=== PATIENT | female | born 1965 | race Caucasian/White ===

== ENCOUNTER 2017-05-15 00:59 | Inpatient (IN) | payer MEDICARE, OTHER ==
[~2017-05-15] VITALS: Ht 157.5 cm; Wt 65.8 kg
--- NOTE | ~2017-05-15 | CN ---
Consultation Report [facility] [address] [place]. [address] NAME: NICHOLAS RAMIREZ : 67 STATUS : ADM IN PAT#: [id number] AGE: 52 ADM/REG DATE : 05/15/17 MR#: [id number] REPORT SERV DATE: 05/15/17 DICTATED BY: FELIPE AVILA DATE: 05/15/17 REPORT STATUS : Draft TRANSCRIBED BY: MODL DATE: 05/15/17 CONSULTATION DATE OF CONSULTATION: 05/15/2017 This 52-year-old female was seen having been admitted by transfer from [facility] in [place], [place]. There is a history of having sustained trauma to the face, secondary to a fall during a seizure. The patient was seen subsequently at [facility] Emergency Room. It was determined she needed Oral Surgery Care and there was none available in the [facility], therefore, she was transferred to [facility]. PHYSICAL EXAMINATION: GENERAL: Reveals alert and cooperative female. She is alert to time, place, and person. HEENT: Contusions, abrasions of the right midface particularly nasal labial area. Eyes reveal pupils to be equal and reactive to light. The extraocular motion is intact. There were no paresthesias of the infraorbital, mental nerve. Tongue protrudes midline. Teeth are mobile in the maxillary anterior. The dental occlusion is stable there are no palpable fractures over the zygoma maxilla or mandible. Trachea is midline. The patient phonates well. DIAGNOSTIC DATA: Review of her CT scan from [facility] reveals fractures of the dental roots, teeth numbers 8 and 9 (maxillary central incisors). No other fractures are noted. IMPRESSION: Dental root fractures, contusions, and abrasions. TREATMENT RECOMMENDATIONS: Antibiotic, analgesics, liquid diet, and recommend removal of teeth numbers 8 and 9. This can be accomplished as an outpatient. This was discussed with the patient and her and they have agreed to return to the office Wednesday morning for the above treatment. WT/MODL Felipe Avila D.D.S. / [id number] CC: Radha Sandoval M.D.
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
--- NOTE | ~2017-05-15 | CN ---
Consultation Report [facility] [address] [place]. [address] NAME: NICHOLAS RAMIREZ : 67 STATUS : ADM IN [facility]#: [id number] AGE: 52 ADM/REG DATE : 05/15/17 MR#: [id number] REPORT SERV DATE: 05/15/17 DICTATED BY: ROBERTA JEFFERSON DATE: 05/15/17 REPORT STATUS : Draft TRANSCRIBED BY: MODCora DATE: 05/15/17 NEUROLOGICAL CONSULT/EVALUATION. DATE OF CONSULTATION: 05/15/2017 REASON FOR CONSULTATION: Recurrent seizures and history of head and facial trauma. HISTORY OF PRESENT ILLNESS: The history was obtained from the patient and her present at her bedside. The patient is a 52-year-old female with known history of epilepsy since age 15, treated with Dilantin and recently with Keppra, which was discontinued in view of poor control of seizures. The patient was recently started on Vimpat. The patient sustained facial and head trauma when she had a seizure yesterday while standing in line at a local store. As per the patient's , the patient has had difficulty obtaining her anticonvulsant medications that would last the entire month. The patient's stated that the physicians providing the patient with medications would give them the medicines that would last only half a month, and he had to, as per him, stretch the medicines. The patient was taking only one Dilantin in the last few days. She was still taking 200 mg b.i.d. of her Vimpat. A similar episode happened a couple of months ago. The patient had recurrent seizure with her Dilantin levels being low. The patient has had difficulty maintaining her Medicaid, which apparently, as per physician's office, telling the patient's that it was not active. The patient has been followed by her physician in [place], [place] stated that she has an appointment with neurologist Dr. Cortes in May. She was transferred to this facility from [facility] in [place], [place] today. PAST MEDICAL HISTORY: Significant history of epilepsy since age 15. FAMILY HISTORY: Significant history of seizure disorder in the patient's mother and the patient's daughter who is in her 20s. SOCIAL HISTORY: There is no history of smoking or alcohol use. The patient is with a very attentive , who recently had to stop working to take care of her since the patient has been having recurrent seizures. As per the patient and her , the combination of Dilantin and Vimpat has worked really well for her in the past, and the patient was transferred to this facility to have evaluation done at Oral Surgery for possible surgery since she had a contusion and facial fracture of the dental roots teeth #eight and #nine maxillary central incisions. REVIEW OF SYSTEMS: The patient was quite sleepy, therefore could not provide all the information. The patient's was not present in the room continuously, therefore information was limited. The patient has had difficulty maintaining her employment as a result of her seizures. She is unable to drive. As per the patient, she has tried to maintain her Medicaid, however, has had difficulty with having steady Medicaid coverage and therefore fluctuating supply of her medications, which have been essential for good control of her Consultation Report [facility] [address] [place]. [address] NAME: NICHOLAS RAMIREZ : 67 STATUS : ADM IN [facility]#: [id number] AGE: 52 ADM/REG DATE : 05/15/17 MR#: [id number] REPORT SERV DATE: 05/15/17 DICTATED BY: ROBERTA JEFFERSON DATE: 05/15/17 REPORT STATUS : Draft TRANSCRIBED BY: ASHLEY DATE: 05/15/17 seizures. PHYSICAL EXAMINATION: VITAL SIGNS: Blood pressure 100/56, pulse was 60, respirations 16, and temperature 98.9. HEAD AND NECK: Examination showed head to be normocephalic. Evidence of recent facial trauma through the midportion of the upper lip and lower lip with swelling, redness, ecchymoses, and area of the sutures in the upper lip. Eye exam: Sclerae were not icteric. Conjunctivae were pink. ENT exam: Tongue was midline. Laceration on the lateral aspect of her tongue on the right was noted. Neck was supple. There is no Kernig or Brudzinski. Cervical range of motion did not appear impaired. CHEST: Symmetrical. LUNGS: Clear to auscultation. HEART: Regular S1 and S2. No S3, S4, or gallops are noted. ABDOMEN: Soft and nontender. No organomegaly. EXTREMITIES: Show no clubbing or cyanosis. There is no peripheral edema. Peripheral pulses are intact throughout. The patient had an area of excoriation over the skin overlying metacarpophalangeal joints of both hands from her recent fall. NEUROLOGIC: The patient's mental status examination showed her to be very somnolent, postictal. The patient responded appropriately to some questions, fell asleep readily, had some difficulty following two-step commands. Speech was fluent. There was no evidence of aphasia or dysarthria. Memory testing difficult to perform in view of the patient's somnolence, appeared to be within normal range except mildly impaired recollection of recent events over the last two days. CRANIAL NERVE EXAMINATION II-XII: Visual mccarthy on confrontation were intact. Funduscopic exam showed no evidence of papilledema, hemorrhages, exudates. No vascular anomalies were noted. Pupils were 3 mm, reacting to light and accommodation. Extraocular movements were full. There was no dysconjugate gaze and no asymmetry was noted. Upward or downward gaze was not limited. There was no nystagmus. Facial sensation and muscles of mastication appeared to be within normal range except for the mild impairment secondary to the swelling from the recent trauma. ENT exam: Tongue was midline. No atrophy or fibrillations were noted. Palate elevated symmetrically. Pharynx appeared normal. Sternocleidomastoid and trapezius muscles were normal. MOTOR EXAM: Muscle bulk and tone were normal. Strength appeared intact throughout. Deep tendon reflexes were 2/2 in upper extremities, 0/2 in both legs. Sensory exam difficult to perform since the patient was falling asleep readily, questionable decrease of vibration distally in lower extremities. CEREBELLAR EXAM: [id number] showed no evidence of ataxia or pass pointing. The patient needed assistance ambulating to the bathroom. Gait was mildly unsteady. IMPRESSION: Breakthrough seizure in a patient with a known history of chronic epilepsy. The patient's stated that since the patient was running out of medications, they were not able to afford to buy the medicine they have been "stretching the dose." The patient has been taking less Dilantin. Insurance Medicare has been sporadically stopped, and the patient was not able to have a steady supply of her anticonvulsant medications. Consultation Report [address] [place]. [address] NAME: NICHOLAS RAMIREZ MIRACLE : 67 STATUS : ADM IN [facility]#: [id number] AGE: 52 ADM/REG DATE : 05/15/17 MR#: [id number] REPORT SERV DATE: 05/15/17 DICTATED BY: ROBERTA JEFFERSON DATE: 05/15/17 REPORT STATUS : Draft TRANSCRIBED BY: ASHLEY DATE: 05/15/17 This creates a very dangerous situation for this patient. The patient sustained severe facial trauma with fracture of mandible and upper jaw as a result of subtherapeutic levels of her anticonvulsant medication. Recommendation to the provider Medicaid is to not to discontinue the patient's insurance coverage or limit her from obtaining her anticonvulsant medication, which creates this dangerous situation. The patient requires a regular neurological followup with her neurologist and should under no circumstances have decreased access to her anticonvulsant medications. Recommend to restart the patient's Dilantin which is 200 b.i.d. dose. The loading dose of Dilantin we can provide is to give her 200 mg now, 200 in the afternoon, and 200 at bedtime; 600 mg total dose today. Check the level tomorrow morning of Dilantin level. Continue Vimpat at 200 mg p.o. b.i.d. Another option is to load the patient with IV Cerebyx, total loading dose of 800 to 1000 mg IV. Telemetry seizure precautions: EEG which was done at the patient's bedside shows diffuse slowing-postictal state with intermittent frontal spike and wave activity in the left frontotemporal region. At this time, no paroxysmal bilaterally synchronous activity was seen. It is not uncommon for seizure patients with generalized seizures to have partial seizures with secondary generalization. The patient has been on Dilantin since age 15. I would recommend to check vitamin B12 and folate level and start the patient on folic acid 1 mg p.o. daily dose, which she needs to stay on indefinitely as long as she remains on Dilantin. Recommend to obtain outpatient bone density study to rule out osteopenia or osteoporosis, not uncommonly seen in seizure patients on chronic dosage of Dilantin. A referral to epileptology center may be in order if side effects of Dilantin create any other chronic problems including neuropathy, cerebellar degeneration, osteoporosis, kidney or liver involvement. Seizure precautions were explained to the patient. No driving or operating heavy movement machinery. No climbing heights or ladders. The patient is not able to maintain any steady gainful employment. The patient may actually need a continuous supervision for the next several weeks until the patient is seen by neurologist, Dr. Cortes. The appointment is made for early May (Dr. Cortes - Neurology in [place], [place]). We would recommend to obtain an MRI of the brain to rule out any area of contusion, subarachnoid hemorrhage, or chronic subdural hematoma since the patient has had recurrent falls and head trauma. Thank you for allowing me to participate in this patient's care. CODY/ASHLEY Roberta Jefferson MD / [id number] CC: Radha Sandoval M.D.
--- NOTE | ~2017-05-15 | DS ---
Discharge Summary [facility] [address] [place]. [address] NAME: NICHOLAS RAMIREZ : 67 STATUS : DIS IN PAT#: [id number] AGE: 52 ADM/REG DATE : 05/15/17 MR#: [id number] REPORT SERV DATE: 05/19/17 DICTATED BY: LEANA WHITNEY DATE: 05/17/17 REPORT STATUS : Draft TRANSCRIBED BY: ASHLEY DATE: 05/17/17 ADMISSION DATE: 05/15/2017 DISCHARGE DATE: 05/17/2017 DIAGNOSES: 1. Recurrent seizures with a history of chronic epilepsy. 2. Acute facial fractures status post facial trauma. FOLLOWUP: The patient should follow up with her primary neurologist, Dr. Cortes in [place] in one week and to follow up with ENT specialist, Dr. Felipe Avila in six or seven days as instructed for facial fractures. DISCHARGE MEDICATIONS: Calcium carbonate with D 600 mg p.o. daily, Vimpat 200 mg p.o. b.i.d., Dilantin 200 mg p.o. b.i.d., Klonopin 0.5 mg p.o. q.h.s., and hydrocodone with acetaminophen one tablet p.o. q.4-6 hours p.r.n. per ENT prescription, Keflex 1000 mg p.o. q.6 hours per ENT prescription. CONSULTANTS: Neurologist, Dr. Jefferson. ENT specialist, Dr. Felipe Avila. HOSPITALIST: Dr. Dieudonne Hunter and Dr. Whitney. HOSPITAL COURSE: A 52-year-old female with a past medical history of epilepsy disorder for which the patient has had uncontrolled seizures with recurrent, apparently follows up with Dr. Cortes, neurologist in [place], [place] and recently changed her dosing from Dilantin plus Keppra to Vimpat plus Dilantin; however, the patient continued to have breakthrough seizures and was found down secondary to seizure, and the patient was seen at the local hospital in [place], [place] at [facility] and due to the patient having acute facial fractures and no ENT at this facility, the patient was transferred to [facility] to be seen by ENT specialist. The patient also had a facial CT and CT of the brain while at this facility and accepted by Dr. Dieudonne Hunter. While at [facility], the patient did not have any recurrent seizures. Her Dilantin and Vimpat were continued per Neurology. Also, the patient's Dilantin level was therapeutic at the time of discharge. Also, the patient was seen by ENT specialist, Dr. Avila, who recommends for the patient to follow up in clinic and also given prescription for antibiotics and pain medications. Apparently with further investigation by Dr. Jefferson, the neurologist, the patient was running out of her seizure medications, and the patient and family member were attempting to "stretch" her medications and stated that insurance would not pay for enough of her medications; therefore, case management was consulted. 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 Neurology expect the patient not to have any uncontrolled seizures when compliant with her medications. After medications were made available and charitied to the patient, the patient and family were discharged to home to follow up with Dr. Cortes, neurologist and also ENT specialist, Dr. Avila. Also, the patient knows and understands no driving or operating heavy machinery and to continue with seizure precautions. Discharge Summary [address] [address] NAME: NICHOLAS RAMIREZ : 67 STATUS : DIS IN PAT#: [id number] AGE: 52 ADM/REG DATE : 05/15/17 MR#: [id number] REPORT SERV DATE: 05/19/17 DICTATED BY: LEANA WHITNEY DATE: 05/17/17 REPORT STATUS : Draft TRANSCRIBED BY: ASHLEY DATE: 05/17/17 [facility]/ASHLEY Leana Whitney M.D. / [id number] CC: Payton Gilliland MD
--- NOTE | ~2017-05-15 | EEG ---
Electroencephalogram [facility] [address] [place]. [address] NAME: NICHOLAS RAMIREZ : 67 STATUS : ADM IN PAT#: [id number] AGE: 52 ADM/REG DATE : 05/15/17 MR#: [id number] REPORT SERV DATE: 05/17/17 DICTATED BY: ROBERTA JEFFERSON DATE: 05/17/17 REPORT STATUS : Draft TRANSCRIBED BY: MODL DATE: 05/17/17 EEG NUMBER: [id number]. REASON FOR EEG: Seizures, head trauma, facial injury. DESCRIPTION: 23 surface electrodes, 10-20 international placement was used. The patient was noted to be awake, drowsy, and asleep throughout the study. The background activity consisted of fqefqnbh-ho-dnuerv voltage, poorly organized 8 cycles per second located in the posterior head regions. This activity appear to attenuate to some degree with the eye opening maneuvers. Photic stimulation was performed, produced some driving response and intermittent sharp activity, which was seen in the temporal regions. This activity was rare and not sustained. No tonic or clonic activity was observed on the video monitoring which was utilized. Intermittent sharp in appearance waveforms were seen in the anterior temporal regions asynchronously left than right. No sustained paroxysmal or epileptiform activity was seen during this study. IMPRESSION: THIS EEG IS DIFFUSELY SLOW MOST LIKELY SECONDARY TO A POSTICTAL STATE. INTERMITTENT SHARP IN APPEARANCE WAVEFORMS SEEN COMPATIBLE WITH UNDERLYING SEIZURE DISORDER HISTORY, NONSUSTAINED PAROXYSMAL EPILEPTIFORM ACTIVITY WAS SEEN DURING THIS STUDY. CLINICAL CORRELATION IS RECOMMENDED. CODY/ASHLEY Roberta Jefferson MD / [id number] CC: Radha Sandoval M.D.
[2017-05-15 06:37] LABS: BASOPHILS 0.1 %; BASOPHILS ABSOLUTE 0.01 10/3/uL (0.0-0.16); EOSINOPHILS 0.5 %; EOSINOPHILS ABSOLUTE 0.04 10/3/uL (0.0-0.53); HEMATOCRIT 35.8 % (36.0-48.0); HEMOGLOBIN 11.5 g/dL (12.0-16.0); IMMATURE GRANULOCYTES 0.3 %; IMMATURE GRANULOCYTES ABSOLUTE 0.02 10/3/uL (0.0-0.11); LYMPHOCYTES 20.1 %; MEAN CORPUS HGB CONC 32.1 g/dL (32.0-36.0); MEAN CORPUSCULAR VOLUME 90.2 fL (80-100); MEAN PLATELET VOLUME 11.8 fL (9.2-13.0); MONOCYTES 9.3 %; MONOCYTES ABSOLUTE 0.74 10/3/uL (0.21-1.20); NEUTROPHILS 69.7 %; NEUTROPHILS ABSOLUTE 5.56 10/3/uL (2.02-8.40); PLATELET COUNT 207 10/3/uL (150-400); RBC DISTRIBUTION WIDTH 14.5 % (12.0-16.0); RED CELL COUNT 3.97 10/6/uL (4.0-5.6)
[2017-05-15 06:38] LABS: MANUAL DIFF NO %
[2017-05-15 06:59] LABS: A/G RATIO 0.9 (0.7-1.9); ALBUMIN 3.3 G/DL (3.5-5.0); ALKALINE PHOSPHATASE 85 U/L (45-117); BUN (BLOOD UREA NITROGEN) 6 MG/DL (6-23); CALCIUM, SERUM 8.9 MG/DL (8.5-10.4); CHLORIDE, SERUM 109 MMOL/L (96-112); CO2 (CARBON DIOXIDE) 25 MMOL/L (24-34); CREATININE 0.64 MG/DL (0.55-1.02); DILANTIN (PHENYTOIN) 13.2 MCG/ML (10.0-20.0); FREE T4 0.81 NG/DL (0.76-1.46); GFR AFRICAN AMERICAN 120 ML/MIN (>=60); GFR NON AFRICAN AMERICAN 103 ML/MIN (>=60); GLOBULIN 3.7 G/DL (2.5-4.1); GLUCOSE, SERUM 103 MG/DL (60-99); PHOSPHORUS, SERUM 2.4 MG/DL (2.5-4.5); POTASSIUM, SERUM 3.8 MMOL/L (3.5-5.3); SGOT(AST) 20 U/L (5-40); SGPT(ALT) 15 U/L (5-65); SODIUM, SERUM 142 MMOL/L (135-148); TOTAL BILIRUBIN 0.4 MG/DL (0-1.2); TROPONIN I <0.02 NG/ML (<0.05)
[2017-05-15] MEDS ORDERED: D100 PO (12:28)
[2017-05-15] MEDS ORDERED: VIMPAT200 MG PO (12:28)
[2017-05-16 16:33] LABS: FOLATE 5.7 NG/ML (>5.2)
[2017-05-17 08:26] LABS: BUN (BLOOD UREA NITROGEN) 8 MG/DL (6-23); CALCIUM, SERUM 9.2 MG/DL (8.5-10.4); CHLORIDE, SERUM 107 MMOL/L (96-112); CO2 (CARBON DIOXIDE) 25 MMOL/L (24-34); GFR AFRICAN AMERICAN 122 ML/MIN (>=60); GFR NON AFRICAN AMERICAN 106 ML/MIN (>=60); GLUCOSE, SERUM 87 MG/DL (60-99); SODIUM, SERUM 140 MMOL/L (135-148)
[2017-05-17 08:28] LABS: PHOSPHORUS, SERUM 3.3 MG/DL (2.5-4.5)
[2017-05-17] MEDS ORDERED: CALTRAT600 PO (17:11)
[2017-05-17] MEDS ORDERED: KLONO5 PO (17:13)
[2017-05-17] MEDS ORDERED: NORCO1 TA1 PO (17:16)
== END 2017-05-17 18:02 | disposition home or self-care (01) | DRG 101 ==
LOC: ENRESERVDT → ENRESERV → ENRESERVTM → 1SO 03:38
PROVIDERS: Internal Medicine; Nurse Practitioner; Student in an Organized Health Care Education/Training Program
DX: G40.409 Other generalized epilepsy and epileptic syndromes, not intractable, without status epilepticus (principal); F41.8 Other specified anxiety disorders; S02.2XXA Fracture of nasal bones, initial encounter for closed fracture; S02.5XXA Fracture of tooth (traumatic), initial encounter for closed fracture; W18.30XA Fall on same level, unspecified, initial encounter; Z79.899 Other long term (current) drug therapy; Z91.14 Patient's other noncompliance with medication regimen; R29.6 Repeated falls; Z91.81 History of falling
CPT/HCPCS: 70551; 80048; 80053; 80185; 82140; 82150; 82306; 82533; 82607; 82746; 83605; 83690; 83735; 84100; 84439; 84443; 84484; 85025; 95819; A9270-GY